=== PATIENT | female | born 1995 | race Caucasian/White ===

== ENCOUNTER 2021-08-30 00:37 | Inpatient (IN) | payer OTHER ==
[2021-08-30] MEDS ORDERED: Lactated Ringers 1,000 ML IV ONE ×2 (01:38→01:44)
[2021-08-30] MEDS ORDERED: TYLENOL EXTRA STRENGTH 500 MG PO PRN (01:39)
[2021-08-30] MEDS ORDERED: Zofran 4 MG/2 ML VIAL IV PRN (01:39)
[2021-08-30] MEDS ORDERED: Ephedrine Sulfate 50 MG/ML IV PRN (01:44)
[2021-08-30] MEDS ORDERED: CORTISONE 1% CREAM TP PRN (01:45)
[2021-08-30] MEDS ORDERED: Dermoplast Spray TP PRN (01:45)
[2021-08-30] MEDS ORDERED: NORCO 5/325 MG PO PRN (01:45)
[2021-08-30] MEDS ORDERED: Mylicon 80MG PO PRN (01:45)
[2021-08-30] MEDS ORDERED: MOTRIN 400 MG PO PRN (01:45)
[2021-08-30] MEDS ORDERED: FENTANYL 2 MCG-BUPIV 0.125%-NS 250 ML Epidur 250 ML EPIDURAL SCH (01:45)
[2021-08-30] MEDS ORDERED: Anucort-HC SUPPOSITORY PR PRN (01:45)
[2021-08-30] MEDS ORDERED: LANSINOH 40 GM TOP PRN (01:45)
[2021-08-30] MEDS ORDERED: Dulcolax 10 MG SUPP PR PRN (01:45)
[2021-08-30 01:48] LABS: Appearance SLIGHTLY CLOUDY (CLEAR); Bilirubin NEGATIVE (NEGATIVE); Blood MODERATE Ery/ul (0-5); Epithelial Cells RARE /HPF (FEW); Glucose NEGATIVE (NEGATIVE); INFLUENZA A NEGATIVE (NEGATIVE); INFLUENZA B NEGATIVE (NEGATIVE); Ketones NEGATIVE (NEGATIVE); Leukocyte Esterase TRACE (NEGATIVE); Mucus SLIGHT /HPF (NEGATIVE); Nitrite NEGATIVE (NEGATIVE); Protein,Urine Dip NEGATIVE (Negative); RESPIRATORY SYNCTIAL VIRUS NEGATIVE (Negative); SARS-CoV-2 Xpert Express NEGATIVE (NEGATIVE); Specific Gravity 1.008 (1.005-1.025); Urobilinogen NEGATIVE mg/dL (0-1); WBC 26-50 /HPF (0-5)
[2021-08-30] MEDS ORDERED: CLINDAMYCIN-D5W 900 MG/50 ML*** 900 MG/50 ML BAG IV ONE (01:49)
[2021-08-30] MEDS ORDERED: Sodium Chloride 0.9% 1000 ML 1,000 ML ONE (01:49)
[2021-08-30 01:51] LABS: Amphetamine,Urine NEGATIVE (NEGATIVE); Barbiturate,Urine NEGATIVE (NEGATIVE); Benzodiazepine,Urine NEGATIVE (NEGATIVE); Cocaine,Urine NEGATIVE (NEGATIVE); Methadone,Urine NEGATIVE (NEGATIVE); Opiate,Urine NEGATIVE (NEGATIVE); PCP,Urine NEGATIVE (NEGATIVE); THC,Urine NEGATIVE (NEGATIVE)
[2021-08-30] MEDS ORDERED: CLINDAMYCIN-D5W 900 MG/50 ML*** 900 MG/50 ML BAG IV SCH (02:00)
[2021-08-30] MEDS: Lactated Ringers 1,000 ML IV SCH (02:05)
[2021-08-30 02:10] LABS: Absolute Neutrophil Ct (ANC) 7.71 (1.4-6.9); Basophil (Absolute #) 0.01 (0-0.4); Eosinophil % 1.6 % (0.00-5.0); Eosinophil (Absolute #) 0.17 (0-0.5); Hematocrit 36.3 % (35-47); Hemoglobin 12.3 gm/dl (12.0-16.0); Lymphocyte (Absolute #) 1.56 (1.0-4.6); Mean Cell Volume 92.1 fl (78-100); Mean Corpuscular Hemoglobin 31.2 pg (26-32); Mean Corpuscular Hgb Concent. 33.9 g/dl (32-36); Mean Platelet Volume 11.2 fl (7.5-11.0); Monocyte (Absolute #) 0.97 (0.0-1.3); Monocytes % 9.3 % (0.0-12.0); Platelet Count 201 K/mm3 (150-450); Red Blood Count 3.94 M/mm3 (4.1-5.4); Red Cell Distribution Width 14.1 % (11.5-14.0); White Blood Count 10.4 K/mm3 (4.0-10.5)
[2021-08-30 02:12] LABS: RBC >101 /HPF (0-2)
[2021-08-30 02:50] LABS: ABO TYPING B; Antibody Screen NEGATIVE (NEGATIVE); RH TYPING POSITIVE
[2021-08-30] MEDS ORDERED: XYLOCAINE 1% HCL 20 ML MDV ONE (03:03)
[2021-08-30] MEDS: PITOCIN 30 UNITS/ LR 500 ML 30 UNITS/500 ML PLAST..BAG IV SCH (03:27)
[2021-08-30] MEDS ORDERED: Methergine ONE (04:13)
[2021-08-30] MEDS ORDERED: Methergine IM ONE ×2 (04:13)
[2021-08-30] MEDS ORDERED: TUCKS TP ONE (05:31)
[2021-08-30] MEDS ORDERED: TUCKS TP PRN (07:57)
[2021-08-30] MEDS ORDERED: Adacel Vial IM ONE (10:00)
[2021-08-30] MEDS ORDERED: M-M-R II Vaccine With Diluent SQ ONE (10:00)
[2021-08-30] MEDS: Colace 100 MG PO SCH (21:07)
[2021-08-31 03:36] VITALS: O2SAT 97
[2021-08-31 05:12] LABS: Hematocrit 29.7 % (35-47); Hemoglobin 9.8 gm/dl (12.0-16.0); Mean Cell Volume 94.9 fl (78-100); Mean Corpuscular Hemoglobin 31.3 pg (26-32); Mean Platelet Volume 10.8 fl (7.5-11.0); Platelet Count 170 K/mm3 (150-450); Red Blood Count 3.13 M/mm3 (4.1-5.4); Red Cell Distribution Width 14.2 % (11.5-14.0); White Blood Count 11.1 K/mm3 (4.0-10.5)
[2021-08-31] MEDS ORDERED: M-M-R II Vaccine With Diluent SQ ONE (08:49)
[2021-08-31] MEDS: Colace 100 MG PO SCH ×3 (09:07→21:16)
[2021-08-31 09:56] LABS: HBsAg Screen Negative (Negative)
[2021-08-31] MEDS ORDERED: FERREX 150 PO SCH (10:00)
[2021-08-31] MEDS: PITOCIN 30 UNITS/ LR 500 ML 30 UNITS/500 ML PLAST..BAG IV SCH (19:52)
[2021-08-31] MEDS: Lactated Ringers 1,000 ML IV SCH (19:53)
--- NOTE | 2021-09-01 08:27 | PCM.DS ---
Discharge Summary Date of Admission: 08/30/21 00:37 Admitting Physician: PATRICE BALDERRAMA Consults: Consults on Case 08/30/21 01:44 Notify Anesthesia Provider PRN 08/30/21 03:44 Navigation ONCE Primary Care Provider: PATRICE BALDERRAMA Allergies Allergies Penicillins Allergy (Verified 08/30/21 07:10) Hospital Summary - Hospital Course Hospital Course: patient arrived in spont labor at 38wks, gbs + given clindamycin. had uncomplicated , mild hemorrhage resolved at delivery. tolerating po, mild lochia, pain controlled - Vitals & Intake/Output Vital Signs: Vital Signs Temperature 98.8 F 09/01/21 03:00 Pulse Rate 84 09/01/21 03:00 Respiratory Rate 16 09/01/21 03:00 Blood Pressure 117/63 09/01/21 03:00 O2 Sat by Pulse Oximetry 97 08/31/21 03:35 Intake & Output: Intake & Output 08/29/21 08/30/21 08/31/21 09/01/21 11:59 11:59 11:59 11:59 Intake Total 650 1650 Output Total 175 Balance 475 1650 Weight 60.328 kg - Lab Result Diagrams: 08/31/21 05:00 Lab Results-Last 24 Hrs: Lab Results-Last 24 Hours 08/30/21 Range/Units 02:07 Hep Bs Antigen Negative (Negative) Micro Results-Entire Visit: Microbiology 08/30/21 01:07 Urine Culture - Final Urine, Void NO GROWTH - Procedures and Test Procedures and Tests throughout Hospitalization: Therapy Orders & Screens 08/30/21 03:10 Standby STAT Comment: Diagnosis: OB Check, c/o abd cramping Discharge Exam General Appearance: no apparent distress, alert Respiratory Exam: normal breath sounds, lungs clear, No respiratory distress Cardiovascular Exam: regular rate/rhythm, normal heart sounds Gastrointestinal/Abdomen Exam: soft, No tenderness, No mass Extremity Exam: normal inspection, normal range of motion Skin Exam: normal color, warm, dry Final Diagnosis/Problem List - Final Discharge Diagnosis/Problem (1) Vaginal delivery Current Visit: Yes Status: Acute Code(s): O80 - ENCOUNTER FOR FULL-TERM UNCOMPLICATED DELIVERY - Discharge Disposition: Home, Self-Care Condition: Stable Prescriptions: Continue Ferrous Sulfate 1 tab PO DAILY Discontinued Pnv No.133/Ferrous Fum/Folic [Sv Vitamins Tablet] 1 tab PO DAILY Follow up with: PATRICE BALDERRAMA MD [Primary Care Provider] - 6 weeks
[2021-09-01 09:08] VITALS: BP 118/56; PULSE 90
== END 2021-09-01 10:10 | disposition home or self-care (01) | DRG 807 ==
LOC: OBSVTOIN 00:37 → OB 00:37
PROVIDERS: ADMIT Family Medicine; ATTEND Family Medicine
PROC: 10E0XZZ Delivery of Products of Conception, External Approach (ICD-10-PCS; principal; 2021-08-30)
DX: O72.1 Other immediate postpartum hemorrhage (principal); Z37.0 Single live birth; Z3A.38 38 weeks gestation of pregnancy; Z20.828 Contact with and (suspected) exposure to other viral communicable diseases
CPT/HCPCS: 0241U; 36415; 59025; 80307; 81001; 85025; 85027; 86850; 86900; 86901; 87086; 87340; 90707; 90715; 94799; J1330; J2590; A9270-GY

== ENCOUNTER 2023-03-27 01:32 | Inpatient (IN) | payer OTHER ==
[2023-03-27] MEDS ORDERED: Pitocin 10 UNITS/ML IM SCH (01:52)
[2023-03-27] MEDS ORDERED: Pitocin 10 UNITS/ML ONE (01:56)
[2023-03-27] MEDS ORDERED: Lactated Ringers 1,000 ML IV ONE (02:01)
[2023-03-27] MEDS ORDERED: CORTISONE 1% CREAM TP PRN (02:02)
[2023-03-27] MEDS ORDERED: TYLENOL EXTRA STRENGTH 500 MG PO PRN (02:02)
[2023-03-27] MEDS ORDERED: Dermoplast Spray TP PRN (02:02)
[2023-03-27] MEDS ORDERED: NORCO 5/325 MG PO PRN (02:02)
[2023-03-27] MEDS ORDERED: MOTRIN 400 MG PO PRN (02:02)
[2023-03-27] MEDS ORDERED: Anucort-HC SUPPOSITORY PR PRN (02:02)
[2023-03-27] MEDS ORDERED: LANSINOH 40 GM TOP PRN (02:02)
[2023-03-27] MEDS ORDERED: Mylicon 80MG PO PRN (02:02)
[2023-03-27] MEDS ORDERED: Dulcolax 10 MG SUPP PR PRN (02:02)
[2023-03-27 02:04] LABS: Appearance Turbid (Clear); Leukocyte Esterase Small (Negative); Nitrite Negative (Negative)
[2023-03-27 02:05] LABS: Bilirubin Negative (Negative); Blood Large (Negative); Glucose, Urine Negative (Negative); Ketones Negative (Negative); Protein,Urine Dip Negative (Negative); RBC >100 /HPF (0-5); Urobilinogen 0.2 mg/dL (0.2)
[2023-03-27 02:06] LABS: ADD URINE CULTURE? YES (NO)
[2023-03-27 02:13] LABS: Amphetamine,Urine NEGATIVE (NEGATIVE); Barbiturate,Urine NEGATIVE (NEGATIVE); Benzodiazepine,Urine NEGATIVE (NEGATIVE); Cocaine,Urine NEGATIVE (NEGATIVE); Methadone,Urine NEGATIVE (NEGATIVE); Opiate,Urine NEGATIVE (NEGATIVE); PCP,Urine NEGATIVE (NEGATIVE); THC,Urine NEGATIVE (NEGATIVE)
--- NOTE | 2023-03-27 02:28 | PCM.HP ---
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 - Review of Systems Constitutional: No Fever, No Chills Respiratory: No Cough, No Short Of Breath Cardiac: No Chest Pain, No Edema, No Syncope Abdominal/Gastrointestinal: Other, No Nausea, No Vomiting Genitourinary Symptoms: Vaginal Bleeding (scant lochia), Other Skin: No Rash All Other Systems: Reviewed and Negative Medications & Allergies Home Medications: Home Medication List Ferrous Sulfate 1 tab PO DAILY 08/30/21 [History Confirmed 08/30/21] Allergies/Adverse Reactions: Allergies Allergy/AdvReac Type Severity Reaction Status Date / Time Penicillins Allergy Verified 08/30/21 07:10 - Past Medical History Past Medical History: No Neurological History: Other ENT History: No Pertinent History Cardiac History: No Pertinent History Respiratory History: No Pertinent History Endocrine Medical History: No Pertinent History Musculoskelatal History: No Pertinent History GI Medical History: No Pertinent History History: No Pertinent History Pyscho-Social History: No Pertinent History Reproductive Disorders: No Pertinent History Comment: NO PREVIOUS BACK ISSUES. THE DOCTOR GAVE HER SOME EXERCISES TO DO AT HOME. - Past Surgical History Past Surgical History: No Neuro Surgical History: No Pertinent History Cardiac History: No Pertinent History Respiratory Surgery: No Pertinent History GI Surgical History: No Pertinent History Genitourinary Surgical Hx: No Pertinent History Musculskeletal Surgical Hx: No Pertinent History Female Surgical History: No Pertinent History - Social History Smoking Status: Never smoker Exposure to second hand smoke: Yes Alcohol: None Drug Use: none - Physical Exam General Appearance: no apparent distress Neurologic Exam: alert, oriented x 3 Respiratory Exam: normal breath sounds, lungs clear, No respiratory distress Cardiovascular Exam: regular rate/rhythm, normal heart sounds, normal peripheral pulses Gastrointestinal/Abdomen Exam: soft, normal bowel sounds, other (fundus firm), No tenderness, No mass Extremity Exam: normal inspection, normal range of motion, pelvis stable Results - Labs Lab/Micro Results: Lab Results-Last 24 Hours 03/27/23 Range/Units 01:30 Urine Color Yellow (Yellow) Urine Appearance Turbid A (Clear) Urine pH 8.0 (4.6-8.0) Ur Specific [place] 1.010 (1.005-1.030) Urine Protein Negative (Negative) Urine Glucose (UA) Negative (Negative) mg/dL Urine Ketones Negative (Negative) Urine Blood Large A (Negative) Urine Nitrite Negative (Negative) Urine Bilirubin Negative (Negative) Urine Urobilinogen 0.2 (0.2) mg/dL Ur Leukocyte Esterase Small A (Negative) Urine Microscopic RBC >100 A (0-5) /HPF Urine Microscopic WBC 11-20 A (0-5) /HPF Ur Epithelial Cells Pending Urine Bacteria Pending Urine Culture Reflexed YES (NO) Assessment/Plan (1) Labor, precipitous, delivered Current Visit: Yes Status: Acute Assessment & Plan: patient had mild lochia, firm fundus on exam with no perineal lacerations upon inspection on my arrival, mom is alert and hemodynamically stable at this time Code(s): O62.3 - PRECIPITATE LABOR (2) delivery, delivered Current Visit: Yes Status: Acute Code(s): O60.10X0 - LABOR W DELIVERY, UNSP TRIMESTER, UNSP
[2023-03-27] MEDS ORDERED: Lactated Ringers 1,000 ML IV SCH (02:30)
[2023-03-27 02:37] LABS: Bacteria None Seen /HPF (None Seen); Epithelial Cells None Seen /HPF (None Seen)
[2023-03-27 02:40] LABS: Hematocrit 34.6 % (35-47); Hemoglobin 11.8 g/dL (12.0-16.0); Mean Cell Volume 91.1 fL (78-100); Mean Corpuscular Hemoglobin 31.1 pg (26-32); Mean Corpuscular Hgb Concent. 34.1 g/dL (32-36); Mean Platelet Volume 10.7 fL (7.5-11.0); Platelet Count 166 x10^3/uL (150-450); White Blood Count 10.6 x10^3/uL (4.0-10.5)
[2023-03-27 02:41] LABS: BASOPHIL % 0.3 % (0.0-0.4); Eosinophil % 1.2 % (0.00-5.0); IMMATURE GRAN % 0.8 % (0.00-0.4); Lymphocytes % 17.4 % (24.0-44.0); Neutrophil % 73.3 % (36.0-66.0); Slide Review 1 NO
[2023-03-27 02:55] LABS: IMMATURE GRAN # 0.08 x10^3u/L (0.00-0.03)
[2023-03-27 03:52] LABS: ABO TYPING B; RH TYPING POSITIVE
[2023-03-27 03:53] LABS: Antibody Screen NEGATIVE (NEGATIVE)
[2023-03-27 04:59] LABS: Absolute Neutrophil Ct (ANC) 13.05 x10^3/uL (1.4-6.9); BASOPHIL % 0.3 % (0.0-0.4); Basophil (Absolute #) 0.04 x10^3/uL (0-0.4); Eosinophil % 0.4 % (0.00-5.0); Eosinophil (Absolute #) 0.06 x10^3/uL (0-0.5); Hemoglobin 11.9 g/dL (12.0-16.0); IMMATURE GRAN # 0.12 x10^3u/L (0.00-0.03); IMMATURE GRAN % 0.8 % (0.00-0.4); Lymphocyte (Absolute #) 1.29 x10^3/uL (1.0-4.6); Lymphocytes % 8.4 % (24.0-44.0); Mean Corpuscular Hemoglobin 31.2 pg (26-32); Mean Platelet Volume 10.6 fL (7.5-11.0); Monocyte (Absolute #) 0.87 x10^3/uL (0.0-1.3); Monocytes % 5.6 % (0.0-12.0); Neutrophil % 84.5 % (36.0-66.0); Platelet Count 206 x10^3/uL (150-450); Red Blood Count 3.82 x10^6/uL (4.1-5.4); Red Cell Distribution Width 13.5 % (11.5-14.0); White Blood Count 15.4 x10^3/uL (4.0-10.5)
[2023-03-27 05:46] VITALS: O2SAT 98
[2023-03-27] MEDS ORDERED: FERREX 150 PO SCH (10:00)
[2023-03-27] MEDS ORDERED: Docusate Sodium 100 MG PO SCH (10:00)
[2023-03-27 12:41] VITALS: RESP 18
[2023-03-27 17:53] VITALS: BP 111/69; PULSE 71; TEMP 97.6
== END 2023-03-27 19:00 | disposition home or self-care (01) | DRG 805 ==
LOC: OBSVTOIN 01:32 → OB 01:32
PROVIDERS: ADMIT Family Medicine; ATTEND Family Medicine
PROC: 10E0XZZ Delivery of Products of Conception, External Approach (ICD-10-PCS; principal; 2023-03-27)
DX: O62.3 Precipitate labor (principal); O60.13X0 Preterm labor second trimester with preterm delivery third trimester, not applicable or unspecified; Z37.0 Single live birth; Z3A.33 33 weeks gestation of pregnancy; Z20.828 Contact with and (suspected) exposure to other viral communicable diseases
CPT/HCPCS: 36415; 80307; 81001; 85025; 86850; 86900; 86901; 87086; J2590; A9270-GY